=== PATIENT | male | born 1960 | race Caucasian/White ===

== ENCOUNTER 2019-01-01 10:00 | Emergency (ER) | payer MEDICARE, OTHER ==
[~2019-01-01] VITALS: Ht 180.3 cm; Wt 108.9 kg
[~2019-01-01 10:00] MED LIST: ASPI-630 PO; CARV6.2511 PO; CLOP75TA PO; LEVO50TA5 PO; LISI10TA2 PO; SPIR25TA5 PO
--- NOTE | 2019-01-01 11:19 | PHYS DOC ---
Past Medical History Past Medical History: CAD, CHF, CVA, High Cholesterol, Hypertension, Other Additional Past Medical Histor: cardiomyopathy Past Surgical History: Angioplasty, Coronary Bypass Surgery Smokin Pack Per Day (30-40 years) Alcohol Use: None Drug Use: None Adult General Chief Complaint Chief Complaint: ABDOMINAL PAIN HPI HPI Patient is a 58 year old male who presents with right sided abdominal pain starting yesterday accompanied by many episodes of vomiting, chills and diarrhea. His and grandchildren have been sick with diarrhea within the last week. He reports that he sometimes feels episodes of intense stabbing pain in his RUQ that lasts 30-90 seconds and resolves on its own. He reports that he is unable to keep fluids or food down. He reports that pepto bismol helps the diarrhea. He is concerned that he is becoming dehydrated as he is having some lightheadedness and dizziness while walking to the point that he tripped this morning. He denies CP, SOB, pain with urination, hematuria and blood per rectum. Review of Systems Review of Systems Constitutional: Denies fever, reports chills. Eyes: Denies change in visual acuity, redness, or eye pain [] HENT: Denies nasal congestion or sore throat [] Respiratory: Denies shortness of breath. States chronic cough with no change in sputum production[] Cardiovascular: No additional information not addressed in HPI [] GI: Reports RUQ abd pain, nausea, vomiting. Denies bloody stools [] : Denies dysuria or hematuria [] Musculoskeletal: Denies back pain or joint pain [] Integument: Denies rash or skin lesions [] Neurologic: Reports general weakness, lightheadedness. Denies headache, focal weakness or sensory changes [] Endocrine: Denies polyuria or polydipsia [] All other systems were reviewed and found to be within normal limits, except as documented in this note. Current Medications Current Medications Current Medications Medications (Trade) Dose Ordered Sig/Rose Start Time Stop Time Status Last Admin Dose Admin Ondansetron HCl (Zofran) 4 mg 1X ONCE 01/01/19 11:30 01/01/19 11:31 DC 01/01/19 11:39 4 MG Sodium Chloride 1,000 ml @ 1,000 mls/hr 1X ONCE 01/01/19 11:30 01/01/19 12:29 DC 01/01/19 11:39 1,000 MLS/HR see med list Allergies Allergies Allergies Coded Allergies Type Severity Reaction Last Updated Verified gabapentin Allergy Intermediate 04/02/16 No Physical Exam Physical Exam Constitutional: Well developed, well nourished, no acute distress, non-toxic appearance. [] HENT: Normocephalic, atraumatic, bilateral external ears normal, oropharynx moist, no oral exudates, nose normal. [] Eyes: PERRLA, EOMI, conjunctiva normal, no discharge. [] Neck: Normal range of motion, no tenderness, supple, no stridor. [] Cardiovascular:Heart rate regular rhythm, no murmur [] Lungs & Thorax: Bilateral breath sounds clear to auscultation [] Abdomen: Bowel sounds normal, soft, no tenderness, no masses, no pulsatile masses. [] Skin: Warm, dry, no erythema, no rash. [] Back: No tenderness, no CVA tenderness. [] Extremities: No tenderness, no cyanosis, no clubbing, ROM intact, no edema. [] Neurologic: Alert and oriented X 3, normal motor function, normal sensory function, no focal deficits noted. [] Psychologic: Affect normal, judgement normal, mood normal. [] Current Patient Data Vital Signs Vital Signs Date Time Temp Pulse Resp B/P (MAP) Pulse Ox O2 Delivery O2 Flow Rate FiO2 01/01/19 13:00 90 16 122/71 (88) 97 Room Air 01/01/19 10:28 97.7 97.7 Lab Values Laboratory Tests Test 01/01/19 11:02 White Blood Count 10.4 x10^3/uL (4.0-11.0) Red Blood Count 5.46 x10^6/uL (4.30-5.70) Hemoglobin 15.8 g/dL (13.0-17.5) Hematocrit 47.1 % (39.0-53.0) Mean Corpuscular Volume 86 fL (79-100) Mean Corpuscular Hemoglobin 29 pg (25-35) Mean Corpuscular Hemoglobin Concent 34 g/dL (31-37) Red Cell Distribution Width 14.3 % (11.5-14.5) Platelet Count 179 x10^3/uL (140-400) Neutrophils (%) (Auto) 84 % (31-73) H Lymphocytes (%) (Auto) 8 % (24-48) L Monocytes (%) (Auto) 8 % (0-9) Eosinophils (%) (Auto) 0 % (0-3) Basophils (%) (Auto) 0 % (0-3) Neutrophils # (Auto) 8.7 x10^3uL (1.8-7.7) H Lymphocytes # (Auto) 0.8 x10^3/uL (1.0-4.8) L Monocytes # (Auto) 0.9 x10^3/uL (0.0-1.1) Eosinophils # (Auto) 0.0 x10^3/uL (0.0-0.7) Basophils # (Auto) 0.0 x10^3/uL (0.0-0.2) Sodium Level 137 mmol/L (136-145) Potassium Level 4.0 mmol/L (3.5-5.1) Chloride Level 98 mmol/L (98-107) Carbon Dioxide Level 21 mmol/L (21-32) Anion Gap 18 (6-14) H Blood Urea Nitrogen 34 mg/dL (8-26) H Creatinine 1.6 mg/dL (0.7-1.3) H Estimated GFR (Cockcroft-Gault) 44.8 BUN/Creatinine Ratio 21 (6-20) H Glucose Level 105 mg/dL (70-99) H Calcium Level 8.7 mg/dL (8.5-10.1) Total Bilirubin 0.9 mg/dL (0.2-1.0) Aspartate Amino Transferase (AST) 33 U/L (15-37) Alanine Aminotransferase (ALT) 49 U/L (16-63) Alkaline Phosphatase 58 U/L (46-116) Troponin I Quantitative < 0.017 ng/mL (0.000-0.055) Total Protein 7.9 g/dL (6.4-8.2) Albumin 4.3 g/dL (3.4-5.0) Albumin/Globulin Ratio 1.2 (1.0-1.7) Lipase 228 U/L (73-393) Laboratory Tests 01/01/19 11:02 Laboratory Tests 01/01/19 11:02 EKG EKG EKG shows a sinus tachycardia rate of 101 no STEMI no ischemic changes intervals appear normal interpreted by me time of encounter[] Radiology/Procedures Radiology/Procedures [] Course & Med Decision Making Course & Med Decision Making Pertinent Labs and Imaging studies reviewed. (See chart for details) Differential diagnosis: favoring gastroenteritis given sick contacts. Treating for nausea, dehydration. []58-year-old history of hypertension CVA coronary artery disease presenting with profuse vomiting and diarrhea in the setting of sick contacts. Labwork does suggest mild to moderate dehydration patient was given IV fluids and he felt much better abdomen was benign on 2 different examinations in the emergency room I doubt surgical etiology patient was given good return precautions and is discharged in stable condition. Specifically there is no right upper quadrant tenderness Dragon Disclaimer Dragon Disclaimer This electronic medical record was generated, in whole or in part, using a voice recognition dictation system. Departure Departure Impression: Primary Impression: Nausea vomiting and diarrhea Disposition: HOME, SELF-CARE Condition: IMPROVED Referrals: UNKNOWN PCP NAME (PCP) FANNY URBINA MD Jan 01, 2019 11:19
[2019-01-01 11:28] LABS: BASO % 0 % (0-3); EOS % 0 % (0-3); HEMATOCRIT 47.1 % (39.0-53.0); HEMOGLOBIN 15.8 g/dL (13.0-17.5); LYMPH # 0.8 x10^3/uL (1.0-4.8); LYMPH % 8 % (24-48); MEAN CORPUSCULAR HEMOGLOBIN 29 pg (25-35); MEAN CORPUSCULAR HGB CONC 34 g/dL (31-37); MEAN CORPUSCULAR VOLUME 86 fL (79-100); MONO # 0.9 x10^3/uL (0.0-1.1); MONO % 8 % (0-9); NEUT # 8.7 x10^3uL (1.8-7.7); NEUT % 84 % (31-73); PLATELET COUNT 179 x10^3/uL (140-400); RED BLOOD COUNT 5.46 x10^6/uL (4.30-5.70); RED CELL DISTRIBUTION WIDTH 14.3 % (11.5-14.5); WHITE BLOOD COUNT 10.4 x10^3/uL (4.0-11.0)
[2019-01-01] MEDS ORDERED: ONDANSETRON PF 4 MG/2 ML VIAL. IV ONE (11:30)
[2019-01-01] MEDS ORDERED: IV NORMAL SALINE 1000ML BAG 1,000 ML IV ONE (11:30)
[2019-01-01 11:38] LABS: CALCIUM 8.7 mg/dL (8.5-10.1); CREATININE 1.6 mg/dL (0.7-1.3); GFR 44.8
[2019-01-01 12:00] LABS: ALBUMIN 4.3 g/dL (3.4-5.0); ALBUMIN/GLOBULIN RATIO 1.2 (1.0-1.7); TOTAL BILIRUBIN 0.9 mg/dL (0.2-1.0); TOTAL PROTEIN 7.9 g/dL (6.4-8.2)
--- NOTE | 2019-01-01 12:03 | EKG ---
[facility] [address] [place] [address] Test Date: 2019-01-01 Test Time: 11:33:35 Pat Name: MANDIE AUSTIN Department: Room: Gender: M [employer]: FLAVIA : 1960 Requested By: FANNY URBINA Order Number: [id number] Reading MD: Nestor Hector MD Measurements Intervals [place] Rate: 101 P: 41 TX: 180 QRS: 17 QRSD: 74 T: 52 QT: 340 QTc: 447 Interpretive Statements SINUS TACHYCARDIA CONSIDER PRIOR SEPTAL INFARCT Electronically Signed On 01-01-2019 15:12:26 CDT by Nestor Hector MD
[2019-01-01 13:00] VITALS: BP 122/71
== END 2019-01-01 13:14 | disposition home or self-care (01) ==
LOC: ER 10:00
DX: R11.2 Nausea with vomiting, unspecified (principal); R19.7 Diarrhea, unspecified; R10.11 Right upper quadrant pain; R42 Dizziness and giddiness; F17.200 Nicotine dependence, unspecified, uncomplicated; I25.810 Atherosclerosis of coronary artery bypass graft(s) without angina pectoris; I11.0 Hypertensive heart disease with heart failure; I50.9 Heart failure, unspecified; Z86.73 Personal history of transient ischemic attack (TIA), and cerebral infarction without residual deficits; Z98.61 Coronary angioplasty status; Z88.8 Allergy status to other drugs, medicaments and biological substances
CPT/HCPCS: 36415; 80053; 83690; 84484; 85025; 93005; 96361; 96374; 99284; J2405; J7030

== ENCOUNTER → 2019-08-03 | Outpatient (CLI) | payer OTHER ==
--- NOTE | 2019-08-03 15:06 | CARD ---
MR#: [id number] Date of Study: 08/03/2019 Ordering Physician: AKANKSHA DOMINGUEZ, Referring Physician: AKANKSHA DOMINGUEZ, Tech: Claudia Wilkins APPROVED REPORT EXAM: Two-dimensional and M-mode echocardiogram with Doppler and color Doppler. Other Information Quality : AverageHR: 70bpm Technically limited study due to body habitus and smoking. INDICATION Cardiomyopathy RISK FACTORS Hypertension Smoking 2D DIMENSIONS RVDd3.0 (2.9-3.5cm)Left Atrium(2D)3.6 (1.6-4.0cm) IVSd1.3 (0.7-1.1cm)Aortic Root(2D)3.9 (2.0-3.7cm) LVDd5.1 (3.9-5.9cm)LVOT Diameter2.1 (1.8-2.4cm) PWd1.3 (0.7-1.1cm)LVDs2.9 (2.5-4.0cm) FS (%) 42.9 %SV92.4 ml LVEF(%)73.7 (>50%) Aortic Valve AoV Peak Ronaldo.130.3cm/sAoV VTI21.0cm AO Peak GR.6.8mmHgLVOT Peak Ronaldo.66.0cm/s LVOT VTI 13.59cmAO Mean GR.4mmHg AGUSTINA (VMAX)1.03xj1KIS (VTI)2.31cm2 Mitral Valve MV E Rsnkxztm26.1cm/sMV DECEL [id number] MV A Qawissnv22.0cm/sMV VVX11oq E/A Ratio0.9MVA (PHT)3.90cm2 TDI E/Lateral E'10.5E/Medial E'11.0 Pulmonary Valve PV Peak Qfsvwoyr83.8cm/sPV Peak Grad.2mmHg Tricuspid Valve TR P. Xuyekkjn717cn/sRAP [id number] TR Peak Gr.88nqRmQNIE56nsZh Pulmonary Vein S1 Zteugdkp87.1cm/sD2 Cvfsobxv94.0cm/s PVa [id number] LEFT VENTRICLE The left ventricle is normal size. There is moderate concentric left ventricular hypertrophy. The lef t ventricular systolic function is normal and the ejection fraction is within normal range. The Eject ion Fraction is 55%. There is normal LV segmental wall motion. Transmitral Doppler flow pattern is Gr oz I-abnormal relaxation pattern. RIGHT VENTRICLE The right ventricle is normal size. There is normal right ventricular wall thickness. The right ventr icular systolic function is normal. ATRIA The left atrium size is normal. The right atrium is mildly dilated. The interatrial septum is intact with no evidence for an atrial septal defect or patent foramen ovale as noted on 2-D or Doppler imagi ng. AORTIC VALVE The aortic valve is normal in structure and function. Doppler and Color Flow revealed no significant aortic regurgitation. There is no significant aortic valvular stenosis. MITRAL VALVE The mitral valve is normal in structure and function. There is no evidence of mitral valve prolapse. There is no mitral valve stenosis. Doppler and Color Flow revealed no mitral valve regurgitation note d. TRICUSPID VALVE The tricuspid valve is normal in structure and function. Doppler and Color Flow revealed trace tricus pid regurgitation with an estimated PAP of 26 mmHg. There is no tricuspid valve stenosis. PULMONIC VALVE The pulmonic valve is not well visualized. Doppler and Color Flow revealed no pulmonic valvular regur gitation. There is no pulmonic valvular stenosis. GREAT VESSELS The aortic root is normal in size. The IVC is dilated and collapses >50% with inspiration. PERICARDIAL EFFUSION There is no evidence of significant pericardial effusion. Critical Notification Critical Value: No <Conclusion> The left ventricular systolic function is normal and the ejection fraction is within normal range. Th e Ejection Fraction is 55%. There is normal LV segmental wall motion. Technically difficult study Signed by : Nestor Hector, Electronically Approved : 08/03/2019 15:06:04
== END | disposition home or self-care (01) ==
LOC: ECHO 12:58
PROVIDERS: ATTEND Internal Medicine Cardiovascular Disease
DX: I25.5 Ischemic cardiomyopathy (principal); I10 Essential (primary) hypertension; F17.200 Nicotine dependence, unspecified, uncomplicated
CPT/HCPCS: 93306